=== PATIENT | female | born 1960 | race Two or more races ===

== ENCOUNTER 2024-09-15 06:58 | Emergency (ER) | payer OTHER ==
[~2024-09-15] VITALS: Ht 149.9 cm; Wt 55.3 kg
[2024-09-15] MEDS ORDERED: TRIAMCINOLONE ACETONIDE 40 MG/ML VIAL IJ STA (08:55)
[2024-09-15] MEDS ORDERED: KETOROLAC TROMETHAMINE 60 MG VIAL IM ONE (12:45)
== END 2024-09-15 12:54 | disposition home or self-care (01) ==
LOC: ER 07:00
DX: M75.31 Calcific tendinitis of right shoulder (principal)